=== PATIENT | male | born 1950 | race Caucasian/White ===

== ENCOUNTER 2023-04-22 11:25 | Day surgery (SDC) | payer MEDICARE ==
[~2023-04-22] VITALS: Ht 170.2 cm; Wt 92.5 kg
[~2023-04-22 11:25] MED LIST: AMLO1TAB24 PO; ATOR1TAB21 PO; CALC0.009 TOP; CLOB5CR TOP; CLON0.3T PO; ISTA0.5S OU; LEVO50TA5 PO; LOSA50TA28 PO; METH50TA10 PO; METO1TAB7 PO; NS 1,000 ML IV ONE; TRIA37.5 PO; VITMTA PO; XALA0.007 OU
[2023-04-22] MEDS ORDERED: propofoL 200 MG/20 ML VIAL As Ordered ONE ×3 (12:45→14:06)
[2023-04-22 14:18] VITALS: TEMP 98.5
[2023-04-22 14:46] VITALS: BP 183/81; O2SAT 96
== END 2023-04-22 14:48 | disposition home or self-care (01) ==
LOC: M OPP 11:25
PROVIDERS: ATTEND Surgery
DX: K62.5 Hemorrhage of anus and rectum (principal); K64.4 Residual hemorrhoidal skin tags; D12.3 Benign neoplasm of transverse colon; D12.0 Benign neoplasm of cecum; I10 Essential (primary) hypertension; E03.9 Hypothyroidism, unspecified; E78.00 Pure hypercholesterolemia, unspecified; Z79.899 Other long term (current) drug therapy; Z79.890 Hormone replacement therapy; Z87.891 Personal history of nicotine dependence; Z88.8 Allergy status to other drugs, medicaments and biological substances